=== PATIENT | female | born 1995 | race Caucasian/White ===

== ENCOUNTER 2020-02-29 19:09 | Emergency (ER) | payer OTHER ==
[~2020-02-29] VITALS: Ht 154.9 cm; Wt 88.2 kg
[2020-02-29] MEDS ORDERED: LIDOCAINE 2% MDV 20ML VIAL SC ONE (19:45)
[2020-02-29 20:35] VITALS: BP 131/82
--- NOTE | 2020-02-29 21:11 | REPVR ---
PROCEDURE INFORMATION: Exam: XR Left Foot Complete Exam date and time: 02/29/2020 7:58 PM Age: 24 years old Clinical indication: Other: Foreign body TECHNIQUE: Imaging protocol: XR Left foot. Views: 3 or more views. COMPARISON: No relevant prior studies available. FINDINGS: Bones/joints: The foreign body is not appear to contact the bones of the 2nd toe. No acute fracture or malalignment. Joint spaces are unremarkable. Soft tissues: There is a set of metal tweezers imbedded in the plantar soft tissues of the 2nd toe. No other foreign bodies. IMPRESSION: Metal foreign body in the 2nd toe plantar soft tissues. Electronically signed by: Deion Hidalgo On 02/29/2020 21:11:09 PM
== END 2020-02-29 20:37 | disposition home or self-care (01) ==
LOC: M ED 19:09
DX: S90.852A Superficial foreign body, left foot, initial encounter (principal); X58.XXXA Exposure to other specified factors, initial encounter; Y92.099 Unspecified place in other non-institutional residence as the place of occurrence of the external cause; Y93.9 Activity, unspecified; Y99.9 Unspecified external cause status; E66.9 Obesity, unspecified; F17.290 Nicotine dependence, other tobacco product, uncomplicated